=== PATIENT | male | born 1950 | race American Indian/Alaskan Native ===

== ENCOUNTER 2017-01-19 06:59 | Day surgery (SDC) | payer MEDICARE, OTHER ==
[~2017-01-19 06:59] MED LIST: ceFAZolin 2 GM/50 ML 2 GM/50 ML BAG IV ONE
[2017-01-19] MEDS ORDERED: LACTATED RINGERS 1,000 ML IV ONE ×2 (07:05→09:14)
--- NOTE | 2017-01-19 07:58 | HISTORY & PHYSICAL EXAMINATION ---
HPI - History of Present Illness HPI Comment/Other: Patient is here for elective umbilical hernia repair for small reducible umbilical hernia. Current Meds: METFORMIN HCL 500 MG ORAL TABS (METFORMIN HCL) 2 tabs by mouth twice daily LOVASTATIN 40 MG TABS (LOVASTATIN) Take one tablet by mouth at evening meal LOSARTAN POTASSIUM-HCTZ 100-12.5 MG ORAL TABS (LOSARTAN POTASSIUM-HCTZ) LANTUS SOLOSTAR 100 UNIT/ML SOLN (INSULIN GLARGINE) inject 30 units SQ twice daily ASPIRIN EC 81 MG TBEC (ASPIRIN) Take one tablet by mouth once daily with food Allergies: MARGRET INHIBITORS (Mild) Past Medical History: Reviewed history and no changes required: Tremors Diabetes, Type 2 Hyperlipidemia Past Surgical History: Reviewed history and no changes required: Cholecystectomy Laceration repair L wrist Family History Summary: Reviewed history and no changes required: 11/18/2016 Social History: Reviewed history and no changes required: Risk Factors: Smoked Tobacco Use: Former smoker Cigarettes: Yes Year quit: 30 Alcohol use: yes Type: beer Drinks per day: <1 Problems were reviewed with the patient during this visit. Medications were reviewed with the patient during this visit. Allergies were reviewed with the patient during this visit. Allergies: MARGRET INHIBITORS (Mild) Physical Exam General: well developed, well nourished, in no acute distress Lungs: clear bilaterally to A & P Heart: regular rate and rhythm, S1, S2 without murmurs, rubs, gallops, or clicks Abdomen: Soft, nondistended. Palpable hernia in the 11 o'clock position around the umbilicus which is easily reducible. Fascial defect feels to be approximately 1 cm. Pulses: pulses normal in all 4 extremities Extremities: no clubbing, cyanosis, edema, or deformity noted with normal full range of motion of all joints Cervical Nodes: no significant adenopathy Psych: alert and cooperative; normal mood and affect; normal attention span and concentration Problems: Problems Added: 1) Dx of Diabetes, Type 2 (ZSQ18-K51.9) (ICD-250.00) 2) Dx of Hyperlipidemia (EOR88-T39.5) (ICD-272.4) 3) Dx of Umbilical hernia (RJZ32-F10.9) (ICD-553.1) Impression & Recommendations: Problem # 1: umbilical hernia Will proceed with umbilical hernia repair PMH/PSH - Past Medical History Cardiovascular: positive: Hypertension, High cholesterol Respiratory: positive: None Endocrine/Autoimmune: positive: Type 2 diabetes GI: positive: Cholelithiasis : positive: None HEENT: positive: Chronic vision loss Psych: positive: None Musculoskeletal: positive: Other Derm: positive: None MRSA Hx?: No - Past Surgical History General: positive: Cholecystectomy, Colonoscopy Ortho: positive: Other Social & Family Hx - Social History ETOH Use: Beer Meds/Allgy - Home Medications Home Medications: Ambulatory Orders Medication Instructions Recorded Confirmed Aspirin [Adult Low Dose Aspirin EC] 81 mg PO DAILY 01/12/17 01/19/17 Insulin Glargine [Lantus Solostar] 30 unit SUBQ BID 01/12/17 01/19/17 Losartan/Hydrochlorothiazide 1 each PO DAILY 01/12/17 01/19/17 [Losartan-Hctz 100-12.5 mg Tab] Lovastatin 40 mg PO DAILY 01/12/17 01/19/17 metFORMIN [Glucophage] 1,000 mg PO BIDWM 01/12/17 01/19/17 - Allergies Allergies/Adverse Reactions: Allergies Allergy/AdvReac Type Severity Reaction Status Date / Time MARGRET Inhibitors AdvReac Respiratory Verified 01/12/17 08:38 Exam - Vital Signs Vital Signs: Vital Signs x48h Temp Pulse Resp BP Pulse Ox 01/19/17 07:06 35.8 C L 90 16 153/77 H 98 Results - Lab Results Other Lab Results: Lab Results x24hrs 01/19/17 Range/Units 07:29 POC Whole Bld Glucose 145 H (70 - 100) mg/dL
[2017-01-19] MEDS ORDERED: LIDOCAINE 1%-EPI 1:100000 20 ML MDV SUBQ ONE ×2 (08:31)
[2017-01-19] MEDS ORDERED: BUPIVACAINE 0.5% PF 30 ML VIAL INFIL ONE ×2 (08:32)
[2017-01-19] MEDS ORDERED: ceFAZolin 2 GM/50 ML 2 GM/50 ML BAG IV ONE (09:04)
[2017-01-19] MEDS ORDERED: NEOSTIGMINE 1 MG/1 ML 10 ML MDV IVP ONE (09:04)
[2017-01-19] MEDS ORDERED: GLYCOPYRROLATE 1 MG/5 ML VIAL IVP ONE (09:04)
[2017-01-19] MEDS ORDERED: ROCURONIUM 50 MG/5 ML VIAL IVP ONE (09:04)
[2017-01-19] MEDS ORDERED: fentaNYL 100 MCG/2 ML VIAL IVP ONE (09:04)
[2017-01-19] MEDS ORDERED: PROPOFOL 200 MG/20 ML VIAL IVP ONE (09:04)
[2017-01-19] MEDS ORDERED: ePHEDrine 50 MG/ML VIAL IVP ONE (09:04)
--- NOTE | 2017-01-19 09:36 | OPERATIVE REPORT ---
DATE OF SURGERY: 01/19/2017 00:00:00 SURGEON: Anne-Marie Sadler MD. PREOPERATIVE DIAGNOSIS: Umbilical hernia. POSTOPERATIVE DIAGNOSES: Umbilical hernia. INDICATION FOR PROCEDURE: This is a 66-year-old male who presents for elective repair of a reducible umbilical hernia. FINDINGS: After obtaining informed consent from the patient, he was brought into the operating room and positioned on the operating table in the supine position, taking note of pressure points. He was intubated by Anesthesia. Perioperative antibiotics were administered. He was prepped and draped in the usual sterile fashion and a time-out was taken according to protocol. An infraumbilical semicircular incision was created approximately 1.5 cm in length and deepened down through the subcutaneous tissue. The hernia sac was encountered. This was circumferentially dissected down to the level of the fascia. The umbilicus was then from the hernia sac with electrocautery. A very small 0.5 cm defect was noted at the umbilicus. The fascia was cleared from fatty tissue circumferentially. A portion of the hernia sac was transected. Hemostasis was noted to be achieved. The hernia was then closed with [id number] 2-0 Prolene sutures, and 30 mL of lidocaine was then administered. The umbilical skin was then tacked to the fascia using 3-0 Vicryl, the skin was reapproximated using 3-0 Vicryl and closed with 4-0 Monocryl. Dermabond was applied. The patient was extubated and taken to the recovery room in stable condition. ESTIMATED BLOOD LOSS: Minimal. COMPLICATIONS: None. SPECIMENS: None. JOB #: [id number] EXT JOB #:[id number] [facility]ITAL[facility]ordan
[2017-01-19 09:38] VITALS: BP 138/79
[2017-01-19] MEDS ORDERED: oxyCOD/ACETAMIN 5 MG/325 MG TABLET PO ONE (09:55)
== END 2017-01-19 07:00 | disposition home or self-care (01) ==
LOC: SDS 06:59
PROVIDERS: ATTEND Surgery
PROC: 0WQF0ZZ Repair Abdominal Wall, Open Approach (ICD-10-PCS; principal; 2017-01-19 08:00)
DX: K42.9 Umbilical hernia without obstruction or gangrene (principal); E11.9 Type 2 diabetes mellitus without complications; E78.5 Hyperlipidemia, unspecified; Z87.891 Personal history of nicotine dependence
CPT/HCPCS: 49585; A9270; J0690; J7120